=== PATIENT | female | born 1990 | race Caucasian/White ===

== ENCOUNTER 2022-02-04 09:54 | Inpatient (IN) ==
[2022-02-04] MEDS ORDERED: OXYTOCIN 30 UNITS/500 ML BAG IV PRN ×2 (12:16)
[2022-02-04] MEDS ORDERED: LIDOCAINE 1% LOCAL 20 ML VIAL INFIL PRN (12:16)
[2022-02-04 12:55] LABS: Hematocrit (blood only) 34.5 % (34.1-44.9); Hemoglobin 12.1 g/dl (12.0-16.0); Mean Corpuscular Hemoglobin 33.1 pg (25.0-34.0); Mean Corpuscular Hgb Conc 35.1 g/dL (32.0-36.0); Mean Corpuscular Volume 94.3 fL (80.0-100.0); Mean Platelet Volume 11.1 fL (9.4-12.3); Platelet Count 280 K/uL (130-400); RDW Coefficient of Variation 12.8 % (11.5-14.5); RDW Standard Deviation 43.8 fL (36.4-46.3); Red Blood Count 3.66 M/uL (3.93-5.22); White Blood Count 11.14 K/ul (4.8-10.8)
[2022-02-04] MEDS: LACTATED RINGER'S 1,000 ML IV PRN ×3 (13:35→20:54)
--- NOTE | 2022-02-04 13:37 | History & Physical Report ---
Date of Service February 04, 2022 Assessment & Plan (1) Supervision of normal intrauterine in primigravida: Plan: 31 y/o G1 at 40 2/7 wga presents for elective IOL VSS Fetus cat 1 Labor - will start w/ mark and pit, pt amenable to mark placement after disc ussion. 35cc mark placed, pt tolerated well. Will start pit up to 10 while balloon is in GBS neg epidural PRN Admission and Anticipated Discharge Date Admission Date: February 04, 2022 History of Present Illness Chief Complaint: IOL Primary Care Provider: NO PCP 31 y/o G1 at 40 3/7 wga presents for IOL. +FM; denies regular ctx, LOF. Had some spotting this AM PNI: Rh neg Past [employer] Hx: G1 regular cycles 07/2021 neg cotest denies hx STIs Allergies Allergy/AdvReac Type Severity Reaction Status Date / Time No Known Allergies Allergy Verified 02/03/22 12:07 Home Medications Medication Instructions Recorded Confirmed Type prenat.vits,vanessa,[id number] 1 tab PO DAILY 07/20/21 02/04/22 History pyridoxine (vitamin B6) 25 mg 25 mg PO DAILY PRN Constipation 07/21/21 02/04/22 History tablet docusate sodium [Colace] 1 tab PO PRN Constipation 09/14/21 02/03/22 History Patient History Surgical History S/P wisdom tooth extraction Family History Father Muscular dystrophy Mother Crohn's disease Social History (Updated 07/20/21 @ 10:01 by Laura Santoyo) Smoking Status: Never smoker Hx Alcohol Use: No Hx Substance Use: No Preferred Language: Maltese Sessions Clerk Required: No Beliefs That Will Affect Care: None marital status: marital status details: Kei (32) [phone] Current Living Situation: Spouse Current Living Situation Comment: lives wtih spouse, no pets. 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 Feels Safe at Home: Yes Safety Concerns: Feels Safe At This Time Physical Exam Genitourinary: OB Exam Abdomen: + vertex (confirmed by BSUS) and + estimated weight (8-9) Manual OB Exam: + cervical dilation (1.5), + cervical effacement 50% and + station -2 OB Exam Monitor Tracing: + external FHT monitor used, + external uterine monitor used (irreg ctx) and + category I (125/mod/+accel/-decel) Results & Data ([facility]) Vital Signs (Past 12 Hours) Vital Signs Temp Pulse Resp BP 02/04/22 12:20 98.1 F 107 H 18 121/81 02/04/22 13:30 76 111/70 02/04/22 12:09 107 H 121/81 Laboratory Results OB Labs: Blood Type AB Negative 07/21/21 Antibody Screen NEGATIVE 11/10/21 Hemoglobin 11.8 g/dL (12.0-16.0) L 11/10/21 Hematocrit 33.7 % (37-47) L 11/10/21 Mean Corpuscular Volume 93.5 fL (80-100) 07/21/21 Platelet Count 286 K/uL (130-400) 07/21/21 Rubella IgG Antibody Immune (Immune) 07/21/21 Rapid Plasma Reagin Nonreactive (Nonreactive) 07/21/21 Hepatitis B Surface Antigen Neg (Neg) 07/21/21 Hepatitis C Antibody Neg (Neg) 07/21/21 HIV (1&2) Ab and P24 Ag, 4th Gener Neg (Neg) 07/21/21 Glucose 1 Hour 50 gm Load 109 mg/dl (70-130) 11/10/21 Maternal Serum Alpha Fetoprotein 29.9 ng/mL 08/17/21 OB Optional Labs: Chlamydia trachomatis RNA NOT DETECTED (NOT DETECTED) 07/21/21 Neisseria gonorrhoeae RNA NOT DETECTED (NOT DETECTED) 07/21/21 Alpha Fetoprotein Triple Screen SEE NOTE 08/17/21 low risk cfdna neg cf/sma GBS neg Diagnostic Findings fundal plac Coding Level of Care Code None Diagnoses Supervision of normal intrauterine in primigravida Z34.00
[2022-02-04] MEDS ORDERED: ePHEDrine sulfate 50 MG/ML AMP ONE (16:02)
[2022-02-04] MEDS ORDERED: fentaNYL citrate 100 MCG/2 ML VIAL ONE (16:02)
[2022-02-04] MEDS ORDERED: SODIUM CHLORIDE 0.9% INJ 10 ML VIAL ONE (16:02)
[2022-02-04] MEDS ORDERED: LIDOCAINE 2%/EPINEPHRINE 1:200,000 20 ML SDV ONE (16:03)
[2022-02-04] MEDS ORDERED: BUPIVACAINE 0.25% 30 ML VIAL ONE (16:03)
[2022-02-04] MEDS ORDERED: fentaNYL 2MCG/ML ROPIVACAINE 1.25MG/ML 100 ML BAG EPI ONE (16:03)
--- NOTE | 2022-02-04 16:12 | Labor Progress Brief Note ---
Date of Service February 04, 2022 Subjective Desires epidural Assessment & Plan (1) Supervision of normal intrauterine in primigravida: Plan: 31 y/o G1 at 40 2/7 wga presents for elective IOL VSS Fetus cat 1 Labor - pt checked as desires epidural and balloon not fallen out. Balloon in vagina, following removal is 4. Continue augmentation GBS neg desires epidural Admission and Anticipated Discharge Date Admission Date: February 04, 2022 Physical Exam Genitourinary: Manual OB Exam: + cervical dilation 4 cm, + cervical effacement 70% and + station -2 OB Exam Monitor Tracing: + external FHT monitor used, + external uterine monitor used (q3) and + category I (135/mod/+accel/-decel) balloon palpated in vagina Results & Data ([facility]) Vital Signs (Past 12 Hours) Vital Signs Temp Pulse Resp BP 02/04/22 12:20 98.1 F 107 H 18 121/81 02/04/22 15:19 90 114/72 02/04/22 12:08 18 02/04/22 12:08 98.1 F 18 02/04/22 13:42 70 115/73 02/04/22 13:30 76 111/70 02/04/22 12:09 107 H 121/81 Coding Level of Care Code None Diagnoses Supervision of normal intrauterine in primigravida Z34.00
[2022-02-04] MEDS ORDERED: ONDANSETRON INJ 2 MG/ML 2 ML VIAL IV PRN (16:16)
[2022-02-04] MEDS ORDERED: NALBUPHINE HCL INJ 10 MG/ML AMP IV PRN (16:16)
[2022-02-04] MEDS ORDERED: fentaNYL 2MCG/ML ROPIVACAINE 1.25MG/ML 100 ML BAG EPI PRN (16:16)
[2022-02-04] MEDS ORDERED: diphenhydrAMINE 50 MG/ML VIAL IV PRN (16:16)
[2022-02-04] MEDS ORDERED: NALOXONE HCL 1 MG in SODIUM CHLORIDE 0.9% 1000ML 1,000 ML IV PRN (16:16)
[2022-02-04] MEDS ORDERED: ePHEDrine sulfate 50 MG/ML AMP IV PRN (16:16)
[2022-02-04] MEDS ORDERED: NALOXONE HCL 0.4 MG/1 ML VIAL/CARP IV PRN (16:16)
--- NOTE | 2022-02-04 16:18 | Anesthesiology Consultation ---
Date of Service February 04, 2022 Assessment & Plan Chart Review Chart Review: Patient NOT seen in Pre Admission Testing and Acceptable Risk for Labor Epidural Consults Requested none ASA ASA2 Proposed Anesthesia Anesthesia Type: Labor Epidural and CSE Risk / Benefits Reviewed With: PT / POA / Parent / Guardian, Accepts Plan and Informed Consent Obtained History Height/Weight Height: 5 ft 2 in Weight: 80.739 kg Allergies Allergy/AdvReac Type Severity Reaction Status Date / Time No Known Allergies Allergy Verified 02/03/22 12:07 Medications Home Medications Medication Instructions Recorded Confirmed Last Taken prenat.vits,vanessa,[id number] 1 tab PO DAILY 07/20/21 02/04/22 02/04/22 07:00 pyridoxine (vitamin B6) 25 mg 25 mg PO DAILY PRN Constipation 07/21/21 02/04/22 02/02/22 21:00 tablet docusate sodium [Colace] 1 tab PO PRN Constipation 09/14/21 02/03/22 02/02/22 21:00 Active Medications Generic Name Dose Route Start Last Admin Trade Name Freq PRN Reason Stop Dose Admin Oxytocin 30 units in 500 mls @ 8 mls/hr 02/04/22 12:16 02/04/22 15:10 Pitocin IV 02/06/22 12:15 0.48 units/hr .Q24H PRN 8 mls/hr Labor Induction/Augmentation Titration Protocol 0.48 UNITS/HR Lactated Ringer's 1,000 mls @ 125 mls/hr 02/04/22 12:16 02/04/22 13:35 Lr IV 02/06/22 12:15 125 mls/hr .Q8H PRN Administration L&D Protocol Protocol NPO Date Last Intake of Fluids: 02/04/22 Time Last Intake of Fluids: 15:30 Date Last Intake of Solids: 02/04/22 Time Last Intake of Solids: 08:00 Exercise / Class Metabolic Activity II 4-5 Yardwork/Stairs/Walk up hill Past Family History Family History Father Muscular dystrophy Mother Crohn's disease Past Surgical History Surgical History S/P wisdom tooth extraction Past Anesthesia History No Hx of Anesthesia Complications and No Family Hx of Anesthesia Complications History of PONV No Hx of PONV and No Hx of Motion Sickness Social History Smoking Status: Never smoker Hx Alcohol Use: No Hx Substance Use: No substance use type: does not use Review of Systems no chest pain or sob Physical Exam Vital Signs Last Vital Signs Temp 36.7 C 02/04/22 12:20 Pulse 76 02/04/22 16:14 Resp 18 02/04/22 12:20 BP 114/72 02/04/22 15:19 Pulse Ox 99 02/04/22 16:14 ENMT Mouth: no TMJ abnormality Thyromental Distance: > or= 3.5 Finger Breadths Mallampati Class: II Neck normal visual inspection Respiratory normal respiratory effort Auscultation: lungs clear to auscultation bilaterally Cardiovascular Rate/Rhythm: regular rate and regular rhythm Musculoskeletal Spine: normal cervical ROM Neurologic moves all extremities Psychiatric Orientation: alert and oriented x 3 Testing Laboratory Results 02/04/22 12:30
--- NOTE | 2022-02-04 19:34 | Labor Progress Brief Note ---
Date of Service February 04, 2022 Subjective Comfortable w/ epidural Assessment & Plan (1) Supervision of normal intrauterine in primigravida: Plan: 31 y/o G1 at 40 2/7 wga presents for elective IOL VSS Fetus cat 1 Labor - now s/p arom, continue induction GBS neg epidural in place Admission and Anticipated Discharge Date Admission Date: February 04, 2022 Physical Exam Genitourinary: Manual OB Exam: + cervical dilation 4 cm, + cervical effacement 70%, + station -1 and + amniotic fluid (arom light mec) OB Exam Monitor Tracing: + external FHT monitor used, + external uterine monitor used (q3) and + category I (135/mod/-accel/+ early decels) Results & Data ([facility]) Vital Signs (Past 12 Hours) Vital Signs Temp Pulse Resp BP Pulse Ox 02/04/22 12:20 98.1 F 107 H 18 121/81 02/04/22 19:29 71 100 02/04/22 19:24 107 H 100 02/04/22 19:23 68 120/74 02/04/22 19:19 92 H 100 02/04/22 19:14 78 100 02/04/22 19:09 99 02/04/22 19:09 63 02/04/22 19:09 114 H 125/77 02/04/22 19:04 61 99 02/04/22 18:59 62 99 02/04/22 18:54 57 L 100 02/04/22 18:53 57 L 106/54 L 02/04/22 18:49 61 99 02/04/22 18:44 58 L 99 02/04/22 18:39 62 99 02/04/22 18:38 98.2 F 60 18 118/54 L 02/04/22 18:34 62 99 02/04/22 18:29 69 97 02/04/22 18:24 61 99 02/04/22 18:10 16 02/04/22 18:10 16 02/04/22 18:23 62 116/57 L 02/04/22 18:19 76 100 02/04/22 18:14 64 99 02/04/22 18:09 60 99 02/04/22 18:07 64 111/73 02/04/22 18:04 65 98 02/04/22 17:59 61 99 02/04/22 17:54 69 99 02/04/22 17:53 60 105/57 L 02/04/22 17:49 66 99 02/04/22 17:44 82 99 02/04/22 17:39 70 99 02/04/22 17:37 83 109/65 02/04/22 17:34 79 98 02/04/22 17:29 68 98 02/04/22 17:24 70 99 02/04/22 17:19 72 97 02/04/22 17:17 63 102/58 L 02/04/22 17:14 73 98 02/04/22 17:10 16 02/04/22 17:10 98.2 F 16 02/04/22 17:09 64 99 02/04/22 17:04 65 99 02/04/22 17:03 72 104/55 L 02/04/22 16:59 80 97 02/04/22 16:58 72 117/62 02/04/22 16:54 67 99 02/04/22 16:49 64 100 02/04/22 16:48 62 108/54 L 02/04/22 16:46 62 116/63 02/04/22 16:44 99 02/04/22 16:44 65 02/04/22 16:44 62 123/58 L 02/04/22 16:42 62 123/59 L 02/04/22 16:39 75 99 02/04/22 16:34 88 97 02/04/22 16:29 91 H 98 02/04/22 16:24 88 98 02/04/22 16:19 84 99 02/04/22 16:14 76 99 02/04/22 16:09 72 99 02/04/22 15:19 90 114/72 02/04/22 12:08 18 02/04/22 12:08 98.1 F 18 02/04/22 13:42 70 115/73 02/04/22 13:30 76 111/70 02/04/22 12:09 107 H 121/81 Coding Level of Care Code None Diagnoses Supervision of normal intrauterine in primigravida Z34.00
[2022-02-04] MEDS ORDERED: PROMETHAZINE HCL 12.5 MG in SODIUM CHLORIDE 0.9% 50 ML IV PRN (20:55)
[2022-02-04] MEDS ORDERED: HEPATITIS B VACCINE RECOMBIN 10 MCG/0.5 ML VIAL IM ONE (23:42)
[2022-02-04] MEDS ORDERED: ERYTHROMYCIN OP OINT 1 GM PKT ONE (23:42)
[2022-02-04] MEDS ORDERED: PHYTONADIONE PED 1 MG/0.5ML AMP/SYRG ONE (23:42)
--- NOTE | 2022-02-05 01:13 | Delivery Summary ---
Vaginal Delivery Summary Date of Service February 05, 2022 Vaginal Delivery Summary [facility] PREOPERATIVE DIAGNOSIS: 1. Single intrauterine at 40 4/7 wga 2. Post-dates IOL POSTOPERATIVE DIAGNOSIS: 1. Single intrauterine at 40 4/7 wga 2. Post-dates IOL 3. Delivered PROCEDURE: 1. Normal spontaneous vaginal delivery. SURGEON: Rhonda Goodwin MD ANESTHESIA: Epidural. ESTIMATED BLOOD LOSS: 300 mL FLUIDS: Continuous LR. URINE OUTPUT: None. COMPLICATIONS: None. CONDITION: Stable. INDICATIONS: 31 y/o G1 at 40 4/7 wga presented for IOL. Induction was begun with mark bulb and pitocin. Following mark bulb expulsion, pitocin was titrated up. She received an epidural for pain control and then underwent AROM. She continued to progress to complete and desired to push. FINDINGS: A viable female , weight pending with Apgars of 4 and 7 at 1 and 5 minutes respectively. SPECIMEN: Cord blood, cord gases, placenta. OPERATIVE REPORT: The patient progressed to 10 cm, 100% effaced and +2 station, pushed over intact perineum with anesthesia to deliver a viable female , weight and Apgars as above. Head of delivered in MELITA position. No nuchal cord was present. Body and shoulders were delivered without difficulty. was delivered to maternal abdomen and nursing staff. Infant was not immediately vigorous and large amount of meconium was noted so cord was clamped and cut. Cord segment and blood were obtained. Placenta delivered spontaneously intact with 3-vessel cord. IV oxytocin and fundal massage were given for excellent hemostasis. Vagina, cervix, perineum, and placenta were inspected. A small vaginal tear just internal to the introitus was noted and repaired using 3-0 vicryl. There was excellent hemostasis. Sponge and needle counts correct x2. No sponges were left behind. Mother and stable in immediate period. [facility] Vaginal Delivery Charge Vaginal Delivery Codes: 52226 global code for the antepartum, delivery, and post- Delivery Type Details: [facility]
[2022-02-05] MEDS ORDERED: BENZOCAINE 20% AER SPR 82.5 GM CAN EXT PRN (01:51)
[2022-02-05] MEDS ORDERED: OXYTOCIN 30 UNITS/500 ML BAG IV PRN (01:51)
[2022-02-05] MEDS ORDERED: DIPHTHERIA/TETANUS/PERTUSSIS 0.5 ML SYR/VIAL IM ONE (01:51)
[2022-02-05] MEDS ORDERED: bisacodyL 10 MG SUPP PR PRN (01:51)
[2022-02-05] MEDS ORDERED: ACETAMINOPHEN 325 MG TAB PO PRN (01:51)
[2022-02-05] MEDS ORDERED: HYDROCORTISONE ACETATE 25 MG SUPP PR PRN (01:51)
[2022-02-05 02:31] LABS: Base Excess Cord Venous Blood -9.9 mEq/L (-7.7-1.9); Cord Venous Blood HCO3 17 mmol/L (18.4-26.8); Cord Venous Blood PCO2 41 mmHg (30.4-57.2); Cord Venous Blood PO2 27 mmHg (14.1-43.3); Cord Venous Blood pH 7.23 (7.20-7.44); O2 Saturation Cord Venous Bld < 60.0 % (<68)
[2022-02-05] MEDS: FERROUS SULFATE 325 MG TAB PO SCH (09:08)
[2022-02-05] MEDS: PRENATAL VITAMIN 1 TAB PO SCH (09:08)
[2022-02-05] MEDS: DOCUSATE SODIUM 100 MG CAP PO SCH ×2 (09:08→21:11)
[2022-02-05] MEDS: IBUPROFEN 600 MG TAB PO PRN ×2 (10:59→18:17)
[2022-02-06] MEDS: IBUPROFEN 600 MG TAB PO PRN (08:08)
[2022-02-06] MEDS: FERROUS SULFATE 325 MG TAB PO SCH (08:08)
[2022-02-06] MEDS: PRENATAL VITAMIN 1 TAB PO SCH (08:08)
[2022-02-06] MEDS: DOCUSATE SODIUM 100 MG CAP PO SCH ×2 (08:08→20:39)
--- NOTE | 2022-02-06 08:30 | Obstetrical Progress Note ---
Date of Service February 06, 2022 Assessment & Plan (1) Vaginal delivery: Plan Doing well. Plan d/c. INstructions given. Day #:: 1 Subjective Ambulation: ambulating normally Voiding: no voiding problems Passing Gas:: Yes Diet Tolerance:: regular diet Lochia:: Small Physical Exam Constitutional WD/WN, vitals as above Respiratory normal respiratory effort, lungs clear to auscultation Cardiovascular RRR, no murmur, no edema Extremities: no calf tenderness and no edema Gastrointestinal (Abdomen) soft, nt, nd ff/nt at Psychiatric A+Ox3, euthymic affect Results & Data ([facility]) Vital Signs (Past 12 Hours) Vital Signs Temp Pulse Resp BP Pulse Ox O2 Del Method 02/05/22 23:25 36.6 C 67 16 121/81 97 Room Air 02/05/22 23:07 36.8 C 65 14 100/57 L 98 Room Air 02/05/22 21:00 36.4 C L 68 18 112/66
[2022-02-06] MEDS ORDERED: bisacodyL 5 MG TABEC PO SCH (20:00)
--- NOTE | 2022-02-07 07:39 | Obstetrical Progress Note ---
Date of Service February 07, 2022 Assessment & Plan (1) Encounter for care and examination after delivery: satisfactory progress will discharge to home today follow up in 6 weeks Subjective Ambulation: ambulating normally Voiding: no voiding problems Passing Gas:: Yes Diet Tolerance:: regular diet Lochia:: Small Feeding Type:: breast feeding is now going much better Review of Systems All systems reviewed & are unremarkable except as noted in HPI & below Physical Exam Constitutional WD/WN, vitals as above Psychiatric A+Ox3, euthymic affect Genitourinary OB Exam Abdomen: + fundal height Fundus: + firm and + relation to umbilicus (2 below) Results & Data ([facility]) Vital Signs (Past 12 Hours) Vital Signs Temp Pulse Resp BP Pulse Ox O2 Del Method 02/06/22 23:41 97.5 F L 80 16 109/76 96 Room Air 02/06/22 20:20 97.9 F 77 16 120/82 Room Air
[2022-02-07] MEDS: FERROUS SULFATE 325 MG TAB PO SCH (08:29)
[2022-02-07] MEDS: PRENATAL VITAMIN 1 TAB PO SCH (08:29)
[2022-02-07] MEDS: DOCUSATE SODIUM 100 MG CAP PO SCH (08:29)
== END 2022-02-07 13:00 | disposition home or self-care (01) | DRG 807 ==
LOC: 4S1 11:47 → 4E2 02-05 03:47